=== PATIENT | female | born 1940 | race Caucasian/White ===

== ENCOUNTER 2023-08-19 12:46 | Emergency (ER) | payer MEDICARE, OTHER ==
[2023-08-19 13:12] VITALS: TEMP 98.7
[2023-08-19] MEDS ORDERED: SODIUM CHLORIDE 0.9% 500 ML 500 ML IV STA (13:24)
--- NOTE | 2023-08-19 13:39 | ED ---
General Adult HPI - General Chief complaint: Fall Stated complaint: Dizziness, Dementia Time Seen by Provider: 08/19/23 13:15 Source: patient, EMS, RN notes reviewed, old records reviewed Mode of arrival: EMS - History of Present Illness Initial comments: 83 FEMALE with either fall or syncopal episode. Patient was found on the floor at the assisted living facility where she lives. Patient has no complaints, he does have history of dementia and history is somewhat limited. According to family member the patient was found this morning on the floor. Patient denies head or neck pain. Denies chest or abdominal pain. No focal numbness or weakness. - Related Data Home Medications Medication Instructions Recorded Confirmed Donepezil [Aricept] 5 mg PO HS@199908/19/23 08/19/23 Escitalopram Oxalate [Lexapro] 20 mg PO DAILY@0808/19/23 08/19/23 Ezetimibe [Zetia] 10 mg PO DAILY@0800 08/19/23 08/19/23 Memantine [Namenda] 10 mg PO BID@0800,199908/19/23 08/19/23 lisinopriL [Zestril] 2.5 mg PO DAILY@0800 08/19/23 08/19/23 Previous Rx's Medication Instructions Recorded lisinopriL [Zestril] 5 mg PO DAILY 30 Days #30 tablet 08/19/23 Allergies Allergy/AdvReac Type Severity Reaction Status Date / Time No Known Allergies Allergy Verified 08/19/23 14:27 Review of Systems ROS Statement: Those systems with pertinent positive or pertinent negative responses have been documented in the HPI. ROS Other: All systems not noted in ROS Statement are negative. Past Medical History Past Medical History: Dementia, Diabetes Mellitus, Hypertension Additional Past Medical History / Comment(s): Hard of hearing Past Surgical History: Cholecystectomy Smoking Status: Never smoker Past Alcohol Use History: None Reported Past Drug Use History: None Reported General Exam General appearance: alert, in no apparent distress Head exam: Present: atraumatic, normocephalic Eye exam: Present: normal appearance, PERRL ENT exam: Present: normal exam Neck exam: Present: normal inspection. Absent: tenderness, meningismus Respiratory exam: Present: normal lung sounds bilaterally. Absent: respiratory distress, wheezes Cardiovascular Exam: Present: regular rate, normal rhythm GI/Abdominal exam: Present: soft. Absent: distended, tenderness, guarding Extremities exam: Present: normal inspection, normal capillary refill. Absent: pedal edema Neurological exam: Present: alert, CN II-XII intact. Absent: motor sensory deficit Psychiatric exam: Present: normal affect, normal mood Skin exam: Present: warm, dry, intact. Absent: cyanosis, diaphoretic Course Vital Signs 08/19/23 08/19/23 08/19/23 12:54 13:45 14:38 Temperature 98.7 F Pulse Rate 58 L 60 59 L Respiratory 18 16 18 Rate Blood Pressure 219/86 167/120 213/85 O2 Sat by Pulse 98 97 99 Oximetry Medical Decision Making - Medical Decision Making Was pt. sent in by a medical professional or institution (, PA, MOTOR AND CHASSIS INSPECTOR, urgent care, hospital, or long term...) When possible be specific @ -No Did you speak to anyone other than the patient for history (EMS, parent, family, police, friend...)? What history was obtained from this source @ -No Did you review nursing and triage notes (agree or disagree)? Why? @ -I reviewed and agree with nursing and triage notes Were old charts reviewed (outside hosp., previous admission, EMS record, old EKG, old radiological studies, urgent care reports/EKG's, long term records)? Report findings @ -No old charts were reviewed Differential Diagnosis (chest pain, altered mental status, abdominal pain women, abdominal pain men, vaginal bleeding, weakness, fever, dyspnea, syncope, headache, dizziness, GI bleed, back pain, seizure, CVA, palpatations, mental health, musculoskeletal)? @ -[Differential Syncope: Valvular disease, hypertrophic cardiomyopathy, pulmonary embolism, tamponade, tachycardia, bradycardia, [place], hypovolemia, hemorrhage, dissection, anemia, intracranial hemorrhage, seizure, hypoglycemia, carbon monoxide poisoning, this is not meant to be an all-inclusive list. EKG interpreted by me (3pts min.). @ -[Sinus bradycardia rate of 58, HI interval 131, QRS duration 88, QTC [address] segment elevation. X-rays interpreted by me (1pt min.). @ -Chest x-ray negative for acute Jose Sood findings CT interpreted by me (1pt min.). @ CT brain negative for intracranial hemorrhage or mass effect U/S interpreted by me (1pt. min.). @ -None done What testing was considered but not performed or refused? (CT, X-rays, U/S, labs)? Why? @ -None What meds were considered but not given or refused? Why? @ -None Did you discuss the management of the patient with other professionals (professionals i.e. , PA, MOTOR AND CHASSIS INSPECTOR, lab, RT, psych nurse, social work case manager, long goods drier, teacher, president and chief commercial officer, catalytic case operator)? Give summary @ -No Was smoking cessation discussed for >3mins.? @ -No Was critical care preformed (if so, how long)? @ -No Were there social determinants of health that impacted care today? How? (Homelessness, low income, unemployed, alcoholism, drug addiction, transportation, low edu. Level, literacy, decrease access to med. care, fpc, rehab)? @ -No Was there de-escalation of care discussed even if they declined (Discuss DNR or withdrawal of care, Hospice)? DNR status @ -No What co-morbidities impacted this encounter? (DM, HTN, Smoking, COPD, CAD, Canc er, CVA, ARF, Chemo, Hep., AIDS, mental health diagnosis, sleep apnea, morbid obesity)? @ History of dementia Was patient admitted / discharged? Hospital course, mention meds given and route, prescriptions, significant lab abnormalities, going to OR and other per tinent info. @ -[83-year-old female history of dementia, limited history. Patient found after either falling, falling asleep on the ground or passing out. Patient has no complaints. She is in sinus rhythm. She's had her baseline mental status. She has no pain complaints. Workup including brain CT, chest x-ray, EKG, lab testing is unremarkable. Patient and family very eager for discharge. Undiagnosed new problem with uncertain prognosis? @ -No Drug Therapy requiring intensive monitoring for toxicity (Heparin, Nitro, Insulin, Cardizem)? @ -No Were any procedures done? @ -No Diagnosis/symptom? @ -Syncope, fall Acute, or Chronic, or Acute on Chronic? @ -Acute Uncomplicated (without systemic symptoms) or Complicated (systemic symptoms)? @ -default Side effects of treatment? @ -No Exacerbation, Progression, or Severe Exacerbation? @ -No Poses a threat to life or bodily function? How? (Chest pain, [place], [place], pneumonia, PE, COPD, DKA, ARF, appy, cholecystitis, CVA, Diverticulitis, Homicidal, Suicidal, threat to staff... and all critical care pts) @ -Low risk at this time - Lab Data Result diagrams: 08/19/23 13:34 08/19/23 13:34 Lab Results 08/19/23 08/19/23 08/19/23 Range/Units 13:34 13:34 13:34 WBC 9.2 (3.8-10.6) k/uL RBC 4.87 (3.80-5.40) m/uL Hgb 15.8 (11.4-16.0) gm/dL Hct 47.5 H (34.0-46.0) % MCV 97.4 (80.0-100.0) fL MCH 32.5 (25.0-35.0) pg MCHC 33.3 (31.0-37.0) g/dL RDW 13.8 (11.5-15.5) % Plt Count 197 (150-450) k/uL MPV 7.8 Neutrophils % 73 % Lymphocytes % 20 % Monocytes % 4 % Eosinophils % 1 % Basophils % 0 % Neutrophils # 6.7 (1.3-7.7) k/uL Lymphocytes # 1.8 (1.0-4.8) k/uL Monocytes # 0.4 (0-1.0) k/uL Eosinophils # 0.1 (0-0.7) k/uL Basophils # 0.0 (0-0.2) k/uL PT 10.9 (10.0-12.5) sec INR 1.0 (<1.2) APTT 27.2 (22.0-30.0) sec Sodium (137-145) mmol/L Potassium (3.5-5.1) mmol/L Chloride (98-107) mmol/L Carbon Dioxide (22-30) mmol/L Anion Gap mmol/L BUN (7-17) mg/dL Creatinine (0.52-1.04) mg/dL Est GFR (CKD-EPI)AfAm (>60 ml/min/1.73 sqM) Est GFR (CKD-EPI)NonAf (>60 ml/min/1.73 sqM) Glucose (74-99) mg/dL Calcium (8.4-10.2) mg/dL Magnesium (1.6-2.3) mg/dL Total Bilirubin (0.2-1.3) mg/dL AST (14-36) U/L ALT (4-34) U/L Alkaline Phosphatase (38-126) U/L Troponin I (0.000-0.034) ng/mL Total Protein (6.3-8.2) g/dL Albumin (3.5-5.0) g/dL Urine Color Colorless Urine Appearance Cloudy H (Clear) Urine pH 7.5 (5.0-8.0) Ur Specific [place] 1.009 (1.001-1.035) Urine Protein Negative (Negative) Urine Glucose (UA) Negative (Negative) Urine Ketones Negative (Negative) Urine Blood Trace H (Negative) Urine Nitrite Negative (Negative) Urine Bilirubin Negative (Negative) Urine Urobilinogen <2.0 (<2.0) mg/dL Ur Leukocyte Esterase Moderate H (Negative) Urine RBC 4 (0-5) /hpf Urine WBC 31 H (0-5) /hpf Ur Squamous Epith Cells 2 (0-4) /hpf Urine Bacteria Many H (None) /hpf Urine Mucus Rare H (None) /hpf 08/19/23 08/19/23 Range/Units 13:34 13:34 WBC (3.8-10.6) k/uL RBC (3.80-5.40) m/uL Hgb (11.4-16.0) gm/dL Hct (34.0-46.0) % MCV (80.0-100.0) fL MCH (25.0-35.0) pg MCHC (31.0-37.0) g/dL RDW (11.5-15.5) % Plt Count (150-450) k/uL MPV Neutrophils % % Lymphocytes % % Monocytes % % Eosinophils % % Basophils % % Neutrophils # (1.3-7.7) k/uL Lymphocytes # (1.0-4.8) k/uL Monocytes # (0-1.0) k/uL Eosinophils # (0-0.7) k/uL Basophils # (0-0.2) k/uL PT (10.0-12.5) sec INR (<1.2) APTT (22.0-30.0) sec Sodium 138 (137-145) mmol/L Potassium 4.8 (3.5-5.1) mmol/L Chloride 104 (98-107) mmol/L Carbon Dioxide 23 (22-30) mmol/L Anion Gap 11 mmol/L BUN 14 (7-17) mg/dL Creatinine 0.81 (0.52-1.04) mg/dL Est GFR (CKD-EPI)AfAm 78 (>60 ml/min/1.73 sqM) Est GFR (CKD-EPI)NonAf 68 (>60 ml/min/1.73 sqM) Glucose 85 (74-99) mg/dL Calcium 9.2 (8.4-10.2) mg/dL Magnesium 2.0 (1.6-2.3) mg/dL Total Bilirubin 1.2 (0.2-1.3) mg/dL AST 42 H (14-36) U/L ALT 19 (4-34) U/L Alkaline Phosphatase 53 (38-126) U/L Troponin I 0.018 (0.000-0.034) ng/mL Total Protein 8.6 H (6.3-8.2) g/dL Albumin 4.7 (3.5-5.0) g/dL Urine Color Urine Appearance (Clear) Urine pH (5.0-8.0) Ur Specific [place] (1.001-1.035) Urine Protein (Negative) Urine Glucose (UA) (Negative) Urine Ketones (Negative) Urine Blood (Negative) Urine Nitrite (Negative) Urine Bilirubin (Negative) Urine Urobilinogen (<2.0) mg/dL Ur Leukocyte Esterase (Negative) Urine RBC (0-5) /hpf Urine WBC (0-5) /hpf Ur Squamous Epith Cells (0-4) /hpf Urine Bacteria (None) /hpf Urine Mucus (None) /hpf Disposition Clinical Impression: Fall, Syncope Disposition: HOME SELF-CARE Condition: Fair Instructions (If sedation given, give patient instructions): Syncope (ED), Fall Prevention for Older Adults (ED) Prescriptions: lisinopriL [Zestril] 5 mg PO DAILY 30 Days #30 tablet Is patient prescribed a controlled substance at d/c from ED?: No Referrals: Jr Carlson MD [Primary Care Provider] - 1-2 days Time of Disposition: 16:06
[2023-08-19 14:37] LABS: Basophils % (A) 0 %; Eosinophils # (A) 0.1 k/uL (0-0.7); Eosinophils % (A) 1 %; HCT 47.5 % (34.0-46.0); HGB 15.8 gm/dL (11.4-16.0); Lymphocytes # (A) 1.8 k/uL (1.0-4.8); Lymphocytes % (A) 20 %; MCH 32.5 pg (25.0-35.0); MCHC 33.3 g/dL (31.0-37.0); MCV 97.4 fL (80.0-100.0); Mean Platelet Volume 7.8; Monocytes # (A) 0.4 k/uL (0-1.0); Monocytes % (A) 4 %; Neutrophils # (A) 6.7 k/uL (1.3-7.7); Neutrophils % (A) 73 %; Platelet Count 197 k/uL (150-450); RBC 4.87 m/uL (3.80-5.40); RDW 13.8 % (11.5-15.5); WBC 9.2 k/uL (3.8-10.6)
[2023-08-19 14:49] VITALS: RESP 18
[2023-08-19 15:14] LABS: ALT 19 U/L (4-34); African American GFR (CKD) 78 (>60 ml/min/1.73 sqM); Albumin 4.7 g/dL (3.5-5.0); Anion Gap 11 mmol/L; Blood Urea Nitrogen 14 mg/dL (7-17); Calcium 9.2 mg/dL (8.4-10.2); Carbon Dioxide 23 mmol/L (22-30); Chloride 104 mmol/L (98-107); Glucose 85 mg/dL (74-99); Non-African American GFR(CKD) 68 (>60 ml/min/1.73 sqM); Sodium 138 mmol/L (137-145); Total Bilirubin 1.2 mg/dL (0.2-1.3); Total Protein 8.6 g/dL (6.3-8.2)
[2023-08-19 15:15] LABS: Partial Thromboplastin Time 27.2 sec (22.0-30.0); Prothrombin Time 10.9 sec (10.0-12.5)
[2023-08-19 15:16] LABS: Potassium 4.8 mmol/L (3.5-5.1)
[2023-08-19 15:17] LABS: AST 42 U/L (14-36); Alkaline Phosphatase 53 U/L (38-126)
[2023-08-19 15:28] LABS: Appearance,Urine Cloudy (Clear); Bacteria,Urine Many /hpf; Bilirubin,Urine Negative (Negative); Blood,Urine Trace (Negative); Color,Urine Colorless; Glucose,Urine (UA) Negative (Negative); Ketones,Urine Negative (Negative); Leukocyte Esterase,Urine Moderate (Negative); Mucus,Urine Rare /hpf; Nitrite,Urine Negative (Negative); PH, Urine 7.5 (5.0-8.0); Protein,Urine Negative (Negative); RBC,Urine 4 /hpf (0-5); Specific Gravity,Urine 1.009 (1.001-1.035); Squamous Epithelial Cell,Urine 2 /hpf (0-4); Urobilinogen,Urine <2.0 mg/dL (<2.0); WBC,Urine 31 /hpf (0-5)
--- NOTE | 2023-08-19 15:35 | CT ---
EXAMINATION TYPE: CT brain wo con CT DLP: 1167.4 mGycm, Automated exposure control for dose reduction was used. DATE OF EXAM: 08/19/2023 3:27 PM COMPARISON: 05/28/2012. CLINICAL INDICATION:Female, 83 years old with history of fall, Fall, dizziness, dementia TECHNIQUE: Brain: Axial CT images of the brain were obtained with coronal and sagittal reformats created and rev iewed. Contrast used: None. Oral contrast used: None. FINDINGS: Brain: Extra-axial spaces: No abnormal extra-axial fluid collections. Probable small peripherally calcified meningioma measuring 5 mm in the posterior right parietal region. Ventricular system: Dilatation in proportion to cerebral atrophy. Cerebral parenchyma: Cerebral atrophy. No acute intraparenchymal hemorrhage or mass effect. The bullock -white junction is well differentiated. Scattered hypoattenuating areas are seen within the white mat ter. Cerebellum: Unremarkable. Mass effect: No evidence of midline shift. Intracranial vasculature: Atherosclerotic calcifications of the intracranial vessels. Soft tissues: Normal. Calvarium/osseous structures: No depressed skull fracture. Paranasal sinuses and mastoid air cells: Mild scattered paranasal sinus disease. Visualized orbits: Bilateral aphakia IMPRESSION: 1. No acute intracranial process. 2. Nonspecific white matter changes, likely secondary to chronic small vessel ischemic disease.
--- NOTE | 2023-08-19 15:42 | XR ---
EXAMINATION TYPE: XR chest 2V DATE OF EXAM: 08/19/2023 COMPARISON: None HISTORY: 83-year-old female with syncope TECHNIQUE: AP and lateral views FINDINGS: Heart borderline in size. Interstitial prominence. No consolidation or pleural effusion. IMPRESSION: Borderline cardiomegaly. No definite acute process.
[2023-08-19 16:49] VITALS: BP 200/94; PULSE 67
== END 2023-08-19 16:42 | disposition home or self-care (01) ==
LOC: EC 12:46
DX: R55 Syncope and collapse (principal); I10 Essential (primary) hypertension; E11.9 Type 2 diabetes mellitus without complications; Z79.899 Other long term (current) drug therapy; Z90.49 Acquired absence of other specified parts of digestive tract; W18.30XA Fall on same level, unspecified, initial encounter
CPT/HCPCS: 36415; 70450; 71046; 80053; 81001; 83735; 84484; 85025; 85610; 85730; 93005; 96360; 99285

== ENCOUNTER 2023-09-10 12:40 | Inpatient (IN) | payer MEDICARE, OTHER ==
--- NOTE | 2023-09-10 13:02 | ED ---
General Adult HPI - General Chief complaint: Altered Mental Status Stated complaint: UTI Time Seen by Provider: 09/10/23 12:44 Source: patient, EMS, RN notes reviewed, old records reviewed Mode of arrival: EMS Limitations: altered mental status - History of Present Illness Initial comments: 83-year-old pleasant female presenting with increased confusion and aggression towards staff. Patient is apparently coming from assisted living facility. There had been a altercation or argument with staff and there was concern for increased confusion. There was mention of urinary tract infection however is uncertain if the patient is currently being treated. She herself has no complaints. Denies pain. Denies fever. Denies vomiting. - Related Data Home Medications Medication Instructions Recorded Confirmed Donepezil [Aricept] 5 mg PO HS@199908/19/23 08/19/23 Escitalopram Oxalate [Lexapro] 20 mg PO DAILY@0808/19/23 08/19/23 Ezetimibe [Zetia] 10 mg PO DAILY@0808/19/23 08/19/23 Memantine [Namenda] 10 mg PO BID@08,199908/19/23 08/19/23 lisinopriL [Zestril] 2.5 mg PO DAILY@0800 08/19/23 08/19/23 Previous Rx's Medication Instructions Recorded lisinopriL [Zestril] 5 mg PO DAILY 30 Days #30 tab 08/19/23 Allergies Allergy/AdvReac Type Severity Reaction Status Date / Time No Known Allergies Allergy Verified 08/19/23 14:27 Review of Systems ROS Statement: Those systems with pertinent positive or pertinent negative responses have been documented in the HPI. ROS Other: All systems not noted in ROS Statement are negative. Past Medical History Past Medical History: Dementia, Diabetes Mellitus, Hypertension Additional Past Medical History / Comment(s): Hard of hearing Past Surgical History: Cholecystectomy Smoking Status: Never smoker Past Alcohol Use History: None Reported Past Drug Use History: None Reported General Exam General appearance: alert, in no apparent distress Head exam: Present: atraumatic. Absent: normocephalic Eye exam: Present: normal appearance. Absent: PERRL Neck exam: Present: normal inspection. Absent: tenderness Respiratory exam: Present: normal lung sounds bilaterally. Absent: respiratory distress, wheezes Cardiovascular Exam: Present: normal rhythm, tachycardia GI/Abdominal exam: Present: soft. Absent: distended, tenderness Extremities exam: Present: normal inspection Neurological exam: Present: alert, CN II-XII intact. Absent: oriented X3, motor sensory deficit Psychiatric exam: Present: normal affect, normal mood Skin exam: Present: warm, dry, intact Course Vital Signs 09/10/23 12:46 Temperature 97.6 F Pulse Rate 49 L Respiratory 20 Rate Blood Pressure 160/60 O2 Sat by Pulse 98 Oximetry Medical Decision Making - Medical Decision Making Was pt. sent in by a medical professional or institution (, PA, PADDER CUSHION, urgent care, hospital, or [facility]...) When possible be specific @ -No Did you speak to anyone other than the patient for history (EMS, parent, family, police, friend...)? What history was obtained from this source @ -No Did you review nursing and triage notes (agree or disagree)? Why? @ -I reviewed and agree with nursing and triage notes Were old charts reviewed (outside hosp., previous admission, EMS record, old EKG, old radiological studies, urgent care reports/EKG's, [facility] records)? Report findings @ -No old charts were reviewed Differential Diagnosis (chest pain, altered mental status, abdominal pain women, abdominal pain men, vaginal bleeding, weakness, fever, dyspnea, syncope, headache, dizziness, GI bleed, back pain, seizure, CVA, palpatations, mental health, musculoskeletal)? @ -Differential Altered Mental Status: Hypoglycemia, DKA, hypercapnia, ETOH, overdose, CO poisoning, trauma, myxedema coma, HTN encephalopathy, infection, encephalitis, psychosis, intercranial hemorrhage, hepatic encephalopathy, meningitis, CVA, this is not meant to be an all-inclusive list EKG interpreted by me (3pts min.). @ -As above X-rays interpreted by me (1pt min.). @ -None done CT interpreted by me (1pt min.). @ -None done U/S interpreted by me (1pt. min.). @ -None done What testing was considered but not performed or refused? (CT, X-rays, U/S, labs)? Why? @ -None What meds were considered but not given or refused? Why? @ -None Did you discuss the management of the patient with other professionals (professionals i.e. , VERA, PADDER CUSHION, lab, RT, psych nurse, dialysis social worker, chart calculator, teacher, real estate officer, senior case manager)? Give summary @ -[Case discussed with Dr. Carlson Was smoking cessation discussed for >3mins.? @ -No Was critical care preformed (if so, how long)? @ -No Were there social determinants of health that impacted care today? How? (Homelessness, low income, unemployed, alcoholism, drug addiction, transportation, low edu. Level, literacy, decrease access to med. care, retirement, rehab)? @ -No Was there de-escalation of care discussed even if they declined (Discuss DNR or withdrawal of care, Hospice)? DNR status @ -No What co-morbidities impacted this encounter? (DM, HTN, Smoking, COPD, CAD, Cancer, CVA, ARF, Chemo, Hep., AIDS, mental health diagnosis, sleep apnea, morbid obesity)? @ -None Was patient admitted / discharged? Hospital course, mention meds given and route, prescriptions, significant lab abnormalities, going to OR and other pertinent info. @ -[83-year-old female history of dementia with worsening confusion and agitation. Patient calm and cooperative at the time my evaluation. She has recently been treated for urinary tract infection and does have persistent bacteriuria. Urine culture obtained, given dose of antibiotics in the emergency department. She also has a slight worsening of her creatinine with a creatinine at 1.15. She will be admitted for hydration, antibiotics, and the possible need for placement. Undiagnosed new problem with uncertain prognosis? @ -No Drug Therapy requiring intensive monitoring for toxicity (Heparin, Nitro, Insulin, Cardizem)? @ -No Were any procedures done? @ -No Diagnosis/symptom? @Altered mental status Acute, or Chronic, or Acute on Chronic? @ -Acute on chronic Uncomplicated (without systemic symptoms) or Complicated (systemic symptoms)? @ -Default Side effects of treatment? @ -No Exacerbation, Progression, or Severe Exacerbation? @ -No Poses a threat to life or bodily function? How? (Chest pain, [place], [place], pneumonia, PE, COPD, DKA, ARF, appy, cholecystitis, CVA, Diverticulitis, Homicidal, Suicidal, threat to staff... and all critical care pts) @ -Yes, worsening mental status - Lab Data Result diagrams: 09/10/23 13:25 09/10/23 13:25 Lab Results 09/10/23 09/10/23 09/10/23 Range/Units 13:25 13:25 13:25 WBC 4.8 (3.8-10.6) k/uL RBC 4.32 (3.80-5.40) m/uL Hgb 14.4 (11.4-16.0) gm/dL Hct 41.6 (34.0-46.0) % MCV 96.2 (80.0-100.0) fL MCH 33.2 (25.0-35.0) pg MCHC 34.5 (31.0-37.0) g/dL RDW 14.0 (11.5-15.5) % Plt Count 139 L (150-450) k/uL MPV 8.1 Neutrophils % 56 % Lymphocytes % 31 % Monocytes % 7 % Eosinophils % 2 % Basophils % 0 % Neutrophils # 2.7 (1.3-7.7) k/uL Lymphocytes # 1.5 (1.0-4.8) k/uL Monocytes # 0.4 (0-1.0) k/uL Eosinophils # 0.1 (0-0.7) k/uL Basophils # 0.0 (0-0.2) k/uL Sodium 137 (137-145) mmol/L Potassium 4.6 (3.5-5.1) mmol/L Chloride 107 (98-107) mmol/L Carbon Dioxide 22 (22-30) mmol/L Anion Gap 8 mmol/L BUN 21 H (7-17) mg/dL Creatinine 1.15 H (0.52-1.04) mg/dL Est GFR (CKD-EPI)AfAm 51 (>60 ml/min/1.73 sqM) Est GFR (CKD-EPI)NonAf 44 (>60 ml/min/1.73 sqM) Glucose 85 (74-99) mg/dL Calcium 9.3 (8.4-10.2) mg/dL Total Bilirubin 0.4 (0.2-1.3) mg/dL AST 25 (14-36) U/L ALT 16 (4-34) U/L Alkaline Phosphatase 50 (38-126) U/L Total Protein 6.7 (6.3-8.2) g/dL Albumin 3.8 (3.5-5.0) g/dL Urine Color Yellow Urine Appearance Cloudy H (Clear) Urine pH 6.0 (5.0-8.0) Ur Specific [place] 1.017 (1.001-1.035) Urine Protein Trace H (Negative) Urine Glucose (UA) Negative (Negative) Urine Ketones Negative (Negative) Urine Blood Negative (Negative) Urine Nitrite Negative (Negative) Urine Bilirubin Negative (Negative) Urine Urobilinogen 3.0 (<2.0) mg/dL Ur Leukocyte Esterase Large H (Negative) Urine RBC 20 H (0-5) /hpf Urine WBC 61 H (0-5) /hpf Ur Squamous Epith Cells 45 H (0-4) /hpf Urine Bacteria Moderate H (None) /hpf Hyaline Casts 3 H (0-2) /lpf Urine Mucus Many H (None) /hpf Disposition Clinical Impression: Altered mental status, Dementia, UTI (urinary tract infection), Dehydration Disposition: ADMITTED IP TO THIS [facility] Condition: Stable Is patient prescribed a controlled substance at d/c from ED?: No Referrals: Jr Carlson MD [Primary Care Provider] - 1-2 days Time of Disposition: 14:19
[2023-09-10 13:55] LABS: Basophils % (A) 0 %; Eosinophils # (A) 0.1 k/uL (0-0.7); Eosinophils % (A) 2 %; HCT 41.6 % (34.0-46.0); HGB 14.4 gm/dL (11.4-16.0); Lymphocytes # (A) 1.5 k/uL (1.0-4.8); Lymphocytes % (A) 31 %; MCH 33.2 pg (25.0-35.0); MCHC 34.5 g/dL (31.0-37.0); MCV 96.2 fL (80.0-100.0); Mean Platelet Volume 8.1; Monocytes # (A) 0.4 k/uL (0-1.0); Monocytes % (A) 7 %; Neutrophils # (A) 2.7 k/uL (1.3-7.7); Neutrophils % (A) 56 %; Platelet Count 139 k/uL (150-450); RBC 4.32 m/uL (3.80-5.40); WBC 4.8 k/uL (3.8-10.6)
[2023-09-10 14:01] LABS: Appearance,Urine Cloudy (Clear); Bacteria,Urine Moderate /hpf; Bilirubin,Urine Negative (Negative); Blood,Urine Negative (Negative); Color,Urine Yellow; Glucose,Urine (UA) Negative (Negative); Hyaline Casts,Urine 3 /lpf (0-2); Ketones,Urine Negative (Negative); Leukocyte Esterase,Urine Large (Negative); Mucus,Urine Many /hpf; Nitrite,Urine Negative (Negative); Protein,Urine Trace (Negative); RBC,Urine 20 /hpf (0-5); Specific Gravity,Urine 1.017 (1.001-1.035); Squamous Epithelial Cell,Urine 45 /hpf (0-4); WBC,Urine 61 /hpf (0-5)
[2023-09-10 14:08] LABS: ALT 16 U/L (4-34); AST 25 U/L (14-36); African American GFR (CKD) 51 (>60 ml/min/1.73 sqM); Albumin 3.8 g/dL (3.5-5.0); Alkaline Phosphatase 50 U/L (38-126); Anion Gap 8 mmol/L; Blood Urea Nitrogen 21 mg/dL (7-17); Calcium 9.3 mg/dL (8.4-10.2); Carbon Dioxide 22 mmol/L (22-30); Chloride 107 mmol/L (98-107); Glucose 85 mg/dL (74-99); Non-African American GFR(CKD) 44 (>60 ml/min/1.73 sqM); Potassium 4.6 mmol/L (3.5-5.1); Sodium 137 mmol/L (137-145); Total Bilirubin 0.4 mg/dL (0.2-1.3); Total Protein 6.7 g/dL (6.3-8.2)
[2023-09-10] MEDS ORDERED: ACETAMINOPHEN TAB 325 MG TAB PO PRN (14:13)
[2023-09-10] MEDS ORDERED: NALOXONE 0.4 MG/ML 1 ML VIAL IV PRN (14:13)
[2023-09-10] MEDS: cefTRIAXone IN SWFI 1,000 MG/10 ML SYRINGE IVP STA (14:43)
[2023-09-10] MEDS: SODIUM CHLORIDE 0.9% 1,000 ML IV SCH (14:47)
[2023-09-10] MEDS: amLODIPine 5 MG TAB PO SCH (20:17)
[2023-09-10] MEDS: ALPRAZolam 0.5 MG TAB PO PRN (20:17)
[2023-09-10] MEDS: DONEPEZIL 5 MG TAB PO SCH (20:17)
[2023-09-10] MEDS: MEMANTINE 5 MG TAB PO SCH (20:17)
[2023-09-10 20:38] LABS: Glucose,Whole Blood 80 mg/dL (70-110)
[2023-09-11 07:12] LABS: Glucose,Whole Blood 71 mg/dL (70-110)
--- NOTE | 2023-09-11 08:25 | P.HPIM ---
History of Present Illness H&P Date: 09/11/23 Chief Complaint: Cognitive deficit This is a history of this, a 3-year-old white female who is having worsening cognitive element. The patient has been working living in an extended care facility but has been much more disoriented. Memory is quite poor and she is admitted secondary to get her placed into a type of memory care unit. The patient is pleasantly disoriented no violent behavior she was seen in my office last week for UTI. She is also mated for mild dehydration. No fever or chills. No send nausea, vomiting or diarrhea. Review of Systems Constitutional: Denies chills, Denies fever Eyes: denies blurred vision, denies pain Ears, nose, mouth and throat: Denies headache, Denies sore throat Cardiovascular: Denies chest pain, Denies shortness of breath Past Medical History Past Medical History: Dementia, Diabetes Mellitus, Hyperlipidemia, Hypertension Additional Past Medical History / Comment(s): Hard of hearing History of Any Multi-Drug Resistant Organisms: None Reported Past Surgical History: Cholecystectomy Past Anesthesia/Blood Transfusion Reactions: No Reported Reaction Smoking Status: Never smoker Medications and Allergies Home Medications Medication Instructions Recorded Confirmed Type Donepezil [Aricept] 5 mg PO HS@199908/19/23 09/10/23 History Escitalopram Oxalate [Lexapro] 20 mg PO DAILY@0808/19/23 09/10/23 History Ezetimibe [Zetia] 10 mg PO DAILY@0800 08/19/23 09/10/23 History Memantine HCl [Namenda] 5 mg PO BID@799,199909/10/23 09/10/23 History RX: lisinopriL [Zestril] 5 mg PO DAILY@0800 09/10/23 09/10/23 History Sulfamethox-Tmp 800-160Mg [Bactrim 1 tab PO Q12HR@799,199909/10/23 09/10/23 History DS 800-160 mg] Allergies Allergy/AdvReac Type Severity Reaction Status Date / Time No Known Allergies Allergy Verified 09/10/23 15:26 Physical Exam Vitals: Vital Signs Temp Pulse Pulse Resp BP BP BP 09/11/23 02:00 98 F 53 L 16 162/64 09/10/23 19:52 184/84 02/06/24 19:12 97.5 F L 50 L 16 191/71 09/10/23 17:46 97.6 F 56 L 18 163/68 09/10/23 16:22 97.6 F 54 L 20 170/70 09/10/23 12:46 97.6 F 49 L 20 160/60 Pulse Ox 09/11/23 02:00 97 09/10/23 19:52 09/10/23 19:12 98 09/10/23 17:46 96 09/10/23 16:22 99 09/10/23 12:46 98 Intake and Output 09/10/23 09/11/23 09/11/23 22:59 06:59 14:59 Other: Voiding Method Toilet # Voids 3 Weight 68.039 kg - Constitutional General appearance: no acute distress - EENT Eyes: EOMI - Neck Neck: no lymphadenopathy - Respiratory Respiratory: bilateral: diminished - Cardiovascular Rhythm: regular Heart sounds: normal: S1, S2 Abnormal Heart Sounds: no S3 Gallop - Gastrointestinal General gastrointestinal: soft, no tenderness - Integumentary Integumentary: no cellulitis - Psychiatric Psychiatric: no A&O x's 3, appropriate affect, no intact judgment & insight Results CBC & Chem 7: 09/10/23 13:25 09/10/23 13:25 Labs: Abnormal Lab Results - Last 24 Hours (Table) 09/10/23 09/10/23 09/10/23 Range/Units 13:25 13:25 13:25 Plt Count 139 L (150-450) k/uL BUN 21 H (7-17) mg/dL Creatinine 1.15 H (0.52-1.04) mg/dL Urine Appearance Cloudy H (Clear) Urine Protein Trace H (Negative) Ur Leukocyte Esterase Large H (Negative) Urine RBC 20 H (0-5) /hpf Urine WBC 61 H (0-5) /hpf Ur Squamous Epith Cells 45 H (0-4) /hpf Urine Bacteria Moderate H (None) /hpf Hyaline Casts 3 H (0-2) /lpf Urine Mucus Many H (None) /hpf Thrombosis Risk Factor Assmnt - Choose All That Apply Any of the Below Risk Factors Present?: No Other Risk Factors: No Other congenital or acquired thrombophilia - If yes, enter type in comment: No Thrombosis Risk Factor Assessment Level: Very Low Risk Assessment and Plan (1) Altered mental status Current Visit: Yes Status: Acute Code(s): R41.82 - ALTERED MENTAL STATUS, UNSPECIFIED SNOMED Code(s): 271351808 (2) Dehydration Current Visit: Yes Status: Acute Code(s): E86.0 - DEHYDRATION SNOMED Code(s): 68058476 (3) Dementia Current Visit: Yes Status: Acute Code(s): F03.90 - UNSP DEMENTIA, UNSP SEVERITY, WITHOUT BEH/PSYCH/MOOD/ANX SNOMED Code(s): 95860323 (4) UTI (urinary tract infection) Current Visit: Yes Status: Acute Code(s): N39.0 - URINARY TRACT INFECTION, SITE NOT SPECIFIED SNOMED Code(s): 42235879 Plan: Discharge planning for appropriate placement given her cognitive deficits and dementia. Treat for UTI and IV fluid for hydration. Check CBC and CMP in AM. Prognosis is guarded
[2023-09-11] MEDS: lisinopriL 5 MG TAB PO SCH (08:42)
[2023-09-11] MEDS: ESCITALOPRAM 20 MG TAB PO SCH (08:42)
[2023-09-11] MEDS: EZETIMIBE 10 MG TAB PO SCH (08:43)
[2023-09-11 11:43] LABS: Glucose,Whole Blood 154 mg/dL (70-110)
[2023-09-11 17:01] LABS: Glucose,Whole Blood 118 mg/dL (70-110)
[2023-09-11 20:12] LABS: Glucose,Whole Blood 128 mg/dL (70-110)
[2023-09-12 07:24] LABS: Glucose,Whole Blood 101 mg/dL (70-110)
[2023-09-12 10:41] LABS: ALT 19 U/L (4-34); AST 33 U/L (14-36); African American GFR (CKD) 65 (>60 ml/min/1.73 sqM); Albumin 3.9 g/dL (3.5-5.0); Albumin/Globulin Ratio 1.3; Alkaline Phosphatase 62 U/L (38-126); Anion Gap 6 mmol/L; Blood Urea Nitrogen 13 mg/dL (7-17); Calcium 9.4 mg/dL (8.4-10.2); Carbon Dioxide 25 mmol/L (22-30); Chloride 108 mmol/L (98-107); Globulin 3.1 g/dL; Glucose 133 mg/dL (74-99); Non-African American GFR(CKD) 56 (>60 ml/min/1.73 sqM); Potassium 4.6 mmol/L (3.5-5.1); Sodium 139 mmol/L (137-145); Total Bilirubin 0.5 mg/dL (0.2-1.3)
[2023-09-12 11:54] LABS: Glucose,Whole Blood 137 mg/dL (70-110)
[2023-09-12] MEDS ORDERED: QUEtiapine 25 MG TAB PO PRN (13:33)
[2023-09-12] MEDS ORDERED: MELATONIN 3 MG TABLET PO PRN (13:34)
[2023-09-12] MEDS ORDERED: OLANZapine 10 MG VIAL IM PRN (13:35)
--- NOTE | 2023-09-12 13:47 | P.CN ---
Psychiatric Consult - . Consult date: 09/12/23 Consult:: 09/12/23 13:03 IDENTIFYING DATA: This patient is a 83-year-old female, currently living in a assisted living facility REASON FOR REFERRAL: Psychiatry was consulted for dementia and aggression. HISTORY OF PRESENT ILLNESS: The patient presented to the hospital on 09/10 for increased confusion and aggression at her assisted living. She apparently was more aggressive towards the staff. There is apparently mention of a UTI that was meant to be treated. Altered mental status and dehydration were the reasons for medical admission. Psychiatry spoke with nurse and patient's medical team, they state that patient is impulsive and at times agitated/irritable. Patient was seen with a one-to-one sitter at the bedside. She acknowledge tag writer however was not able to answer many questions. She was difficult to redirect during conversation. Fairly poor attention span. She did appear to be somewhat impulsive during the interview, very poor/limited chronically insight and judgment. She did state that she was willing to take medications. She was not able to properly answer any orientation questions and simply rambled and was illogical. Davon patient was not able to follow commands. She states that she did not want to speak with tag writer, she was a very poor historian. PAST PSYCHIATRIC HISTORY: Patient has a a history of dementia. Patient is currently on Lexapro 20 mg daily and Aricept for memory. Unable to obtain further psychiatric history. Past Medical History: Dementia, Diabetes Mellitus, Hypertension Additional Past Medical History / Comment(s): Hard of hearing Past Surgical History: Cholecystectomy Smoking Status: Never smoker Past Alcohol Use History: None Reported Past Drug Use History: None Reported ALLERGIES: as per EMR. CHEMICAL DEPENDENCY HISTORY: Unable to obtain FAMILY PSYCHIATRIC/SUBSTANCE USE HISTORY: Unable to obtain SOCIAL HISTORY: Patient is currently living in a assisted living facility. Unable to obtain further information MENTAL STATUS EXAM: General Appearance: Patient appears to be well dressed, short hair, stated age is alert, irritable and impulsive. Patient appears to have fair hygiene and grooming wearing hospital gown with fair eye contact. Behavior: Patient is impulsive, difficult to redirect. Speech: Patient's speech is rambling, illogical Mood/Affect: unAble to obtain Suicidality/Homicidality: Unable to obtain Perceptions: Unable to obtain Though content/process: Rambles, illogical. Difficult to redirect Memory and concentration: AOX0, poor attention span. Unable to follow directions. Cannot spell "WORLD" backwards Judgment and insight: Chronically poor/limited IMPRESSIONS: Major neurocognitive disorder possible delirium, likely secondary to UTI/infection PLAN: -At this time patient DOES NOT meet criteria for inpatient psychiatric admission. -Patient DOES NOT have decision making capacity at this time and is unable to reason through and communicate/appreciate the risks, benefits and alternatives to treatment. -Delirium precautions recommended with patient including - avoiding use of narcotics and METHODS TIME ANALYST sedatives, limit anticholinergic medications when possible, frequent re-orientation, minimize use of restraints, open window shades during the day and close them at night -Would recommend the following medication changes/additions: Melatonin nightly as needed for sleep, Seroquel scheduled 25 mg nightly for mood stabilization/psychosis/sleep, Seroquel milligrams twice daily PRN for agitation. Can continue Aricept and Lexapro as prescribed. Discontinue Xanax as patient should not be on benzodiazepines due to her dementia and delirium. -suggested to primary YARDAGE CONTROL CLERK to commence abx treatment for suspected UTI? to help clear delirium if this is the culprit. -Communicated plan to patient's nurse -Psychiatry will sign off at this time -Please contact with any questions. 09/12/23 13:40 09/12/23 13:47
[2023-09-12] MEDS: QUEtiapine 25 MG TAB PO STA (14:37)
[2023-09-12] MEDS: cefTRIAXone 1,000 MG VIAL (IM USE) IM STA (15:33)
[2023-09-12 16:45] LABS: HCT 46.3 % (37.2-46.3); HGB 15.1 g/dL (12.0-15.0); MCH 31.4 pg (27.0-32.0); MCHC 32.6 g/dL (32.0-37.0); MCV 96.3 FL (80.0-97.0); Mean Platelet Volume 11.1 FL (9.5-12.2); NRBC Per 100 WBC 0 X 10*3/uL (0.00-0.01); Platelet Count 171 X 10*3/uL (140-440); RBC 4.81 X 10*6/uL (4.10-5.20); RDW 14.5 % (11.5-14.5); WBC 5.79 X 10*3/uL (4.50-10.00)
[2023-09-12 17:10] LABS: Glucose,Whole Blood 129 mg/dL (70-110)
--- NOTE | 2023-09-12 18:57 | P.PN ---
Subjective Progress Note Date: 09/12/[address] Carlson This is an 83-year-old female who [facility] Dr[facility] with a past medical history of dementia, diabetes, hyperlipidemia, hypertension, anxiety and was brought to the hospital with increased altered mental status with aggression and confusion along with dehydration and concerns for urinary tract infection. Patient did receive IV hydration initially although patient is refusing IV line at this time and has been taking medications by mouth. Patient became aggressive and agitated today attempting to pinch and strike at staff and a psych consult was requested. Patient will be started on Seroquel and adjustments to other medications as accordingly. Patient will also be given a dose of IM ceftriaxone. Urine culture did result as normal kary. Review of systems: Unable to obtain as patient is somewhat agitated at this time All medications have been reviewed PHYSICAL EXAMINATION: GENERAL: The patient is alert and oriented x2, agitated, anxious well developed, well nourished. HEENT: Pupils are round and equally reacting to light. EOMI. no scleral icterus. No conjunctival pallor. Normocephalic, atraumatic. No pharyngeal erythema. No thyromegaly. CARDIOVASCULAR: S1 and S2 muffled PULMONARY: diminished breath sounds bilaterally with no wheezing or rhonchi noted. ABDOMEN: soft. Nontender on exam. non-distended, normoactive bowel sounds. No palpable organomegaly. MUSCULOSKELETAL: No joint swelling or deformity. EXTREMITIES: No cyanosis, clubbing, or pedal edema. NEUROLOGICAL: Gross neurological examination did not reveal any focal deficits. SKIN: No rashes. Assessment: Altered mental status, multifactorial likely secondary to acute urinary tract infection, present on admission, as well as dehydration History of dementia History of diabetes mellitus Hyperlipidemia Hypertension History of anxiety GI prophylaxis DVT prophylaxis Full code Plan: Recommend to continue with current medications will give a dose of ceftriaxone IM as patient is refusing IV. There was concern of altered mentation being from acute urinary tract infection on admission and urine cultures did finalize as normal kary although this was a drastic change in mentation per son and unable to entirely exclude a urinary tract infection. Kidney functions appear improved and patient initially did receive some IV hydration. Again patient has no IV and is refusing Patient became increasingly agitated and somewhat aggressive towards staff demanding to leave and go home although patient is unable to do so given her mentation and cognitive decline. Patient will be going to [facility] with 25/02 care. Patient was evaluated by psychiatry and being started on Seroquel and will follow in the outpatient setting Plan is for return to [facility] in the next possible 24 to 48 hours. Case management following making arrangements on discharge planning Recommend outpatient follow-up with primary care provider this week. The impression and plan of care has been dictated by Carolyn Gimenez, nurse practitioner as directed. Dr. Ludwin MD I have performed a history and examination and MDM of this patient, discussed the same with the dictator, and agree with the dictator's assessment and plan as written ,documented as a scribe. Based on total visit time, I have performed more than 50% of the visit. Any additional findings or plans will be noted. Objective - Vital Signs Vital signs: Vital Signs Temp 98.5 F 09/12/23 07:16 Pulse 53 L 09/12/23 07:16 Resp 20 09/12/23 07:16 BP 198/67 09/12/23 07:16 Pulse Ox 98 09/12/23 07:16 FiO2 Intake & Output 09/11/23 09/12/23 09/12/23 18:59 06:59 18:59 Intake Total 500 500 Balance 500 500 Intake: Intake, IV Titration 500 Amount Sodium Chloride 0.9% 1, 500 000 ml @ 75 mls/hr IV . [id number] [facility] Rx#:[id number] Oral 500 Other: Voiding Method Toilet Toilet # Voids 2 - Labs CBC & Chem 7: 09/12/23 10:04 09/12/23 10:04 Labs: Abnormal Lab Results - Last 24 Hours (Table) 09/11/23 09/11/23 09/12/23 Range/Units 17:00 20:10 10:04 Chloride 108 H (98-107) mmol/L Glucose 133 H (74-99) mg/dL POC Glucose (mg/dL) 118 H 128 H (70-110) mg/dL 09/12/23 Range/Units 11:52 Chloride (98-107) mmol/L Glucose (74-99) mg/dL POC Glucose (mg/dL) 137 H (70-110) mg/dL Microbiology - Last 24 Hours (Table) 09/10/23 14:28 Urine Culture - Final Urine,Clean Catch
[2023-09-12] MEDS: QUEtiapine 25 MG TAB PO SCH (23:13)
--- NOTE | 2023-09-13 10:41 | P.DS ---
Providers Date of admission: 09/12/23 07:45 Expected date of discharge: 09/13/23 Attending physician: Jr Carlson Consults: 09/12/23 09:35 Consult Physician Stat Consulting Provider: Camron Ahuja Reason/Comments: dementia, aggressive behavior, needs med adjustment Do you want consulting provider notified?: Yes Primary care physician: Jr Carlosn Hospital Course: Final diagnosis Altered mental status, multifactorial likely secondary to acute urinary tract infection, present on admission, as well as dehydration History of dementia History of diabetes mellitus Hyperlipidemia Hypertension History of anxiety GI prophylaxis DVT prophylaxis Full code Discharge disposition Patient is being discharged in a stable condition with guarded prognosis to [facility] where she resides with [address] [place] [address]. Patient will follow-up with Dr. Carlson in the outpatient setting upon discharge. Patient is to continue with medications as prescribed and outpatient follow-up with primary care provider in 1 week. Total time taken is greater than 35 minutes. Hospital course This is a 83-year-old female who was recently admitted with altered mentation and increased agitation with concerns of urinary tract infection. Patient had been on Bactrim and urine cultures obtained with normal kary although was given a dose of ceftriaxone. Patient denies any symptoms of pain, burning, or frequency with urination. Patient became slightly agitated wanting to go home yesterday and evaluated by psychiatry recommending frequent reorientation and Seroquel as needed during the day along with Seroquel at night. Patient will be returning to [facility] with Critical access hospital care. Recommend follow-up with Dr. Carlson this week. Currently no reports of chest pain, shortness of breath, or palpi tations. Patient is afebrile. No reports of nausea or vomiting and patient is tolerating diet. Patient will be going to [facility] today. Guarded prognosis Physical exam: Gen: This is a 83-year-old female who is awake, alert and oriented x 12, well- developed, well-nourished HEENT: Head is atraumatic, normocephalic. Pupils equal, round. Sclerae is anicteric. NECK: Supple. No JVD. No lymphadenopathy. No thyromegaly. LUNGS: Clear to auscultation. No wheezes or rhonchi. No intercostal retractions. HEART: Regular rate and rhythm. No murmur. ABDOMEN: Soft. Bowel sounds are present. No masses. No tenderness. EXTREMITIES: No pedal edema. No calf tenderness. NEUROLOGICAL: Patient is awake, alert and oriented x 1-2. Cranial nerves 2 through 12 are grossly intact. Steady gait Please refer to medication reconciliation sheet for a list of medications. The impression and plan of care has been dictated by Carolyn Gimenez, Nurse Practitioner as directed. Dr. Ludwin MD I have performed a history and examination and MDM of this patient, discussed the same with the dictator, and agree with the dictator's assessment and plan as written ,documented as a scribe. Based on total visit time, I have performed more than 50% of the visit. Patient Condition at Discharge: Stable Plan - Discharge Summary Discharge Rx Participant: No New Discharge Prescriptions: New Melatonin 3 mg PO HS PRN #30 tab PRN Reason: Insomnia amLODIPine [Norvasc] 5 mg PO HS #30 tab Acetaminophen Tab [Tylenol] 650 mg PO Q6HR PRN tab PRN Reason: Mild Pain Or Fever > 100.5 Thiamine [Vitamin B-1] 100 mg PO DAILY@1200 #30 tab Folic Acid 1 mg PO DAILY@1200 #30 tab Multivitamins, Thera [Multivitamin (formulary)] 1 each PO DAILY@1200 #30 tab QUEtiapine [SEROquel] 25 mg PO HS 30 Days #30 tab QUEtiapine [SEROquel] 25 mg PO BID PRN #30 tab PRN Reason: Agitation Continue Ezetimibe [Zetia] 10 mg PO DAILY@0800 Escitalopram Oxalate [Lexapro] 20 mg PO DAILY@0800 Donepezil [Aricept] 5 mg PO HS@1999 lisinopriL [Zestril] 5 mg PO DAILY@0800 Memantine HCl [Namenda] 5 mg PO BID@ Discontinued Sulfamethox-Tmp 800-160Mg [Bactrim DS 800-160 mg] 1 tab PO Q12HR@ Discharge Medication List Donepezil [Aricept] 5 mg PO HS@199908/19/23 [History] Escitalopram Oxalate [Lexapro] 20 mg PO DAILY@0800 08/19/23 [History] Ezetimibe [Zetia] 10 mg PO DAILY@0800 08/19/23 [History] Memantine HCl [Namenda] 5 mg PO BID@ 09/10/23 [History] lisinopriL [Zestril] 5 mg PO DAILY@0800 09/10/23 [History] Acetaminophen Tab [Tylenol] 650 mg PO Q6HR PRN tab 09/13/23 [Rx] Folic Acid 1 mg PO DAILY@1200 #30 tab 09/13/23 [Rx] Melatonin 3 mg PO HS PRN #30 tab 09/13/23 [Rx] Multivitamins, Thera [Multivitamin (formulary)] 1 each PO DAILY@1200 #30 tab 09/13/23 [Rx] QUEtiapine [SEROquel] 25 mg PO BID PRN #30 tab 09/13/23 [Rx] QUEtiapine [SEROquel] 25 mg PO HS 30 Days #30 tab 09/13/23 [Rx] Thiamine [Vitamin B-1] 100 mg PO DAILY@1200 #30 tab 09/13/23 [Rx] amLODIPine [Norvasc] 5 mg PO HS #30 tab 09/13/23 [Rx] Follow up Appointment(s)/Referral(s): Jr Carlson MD [Primary Care Provider] - 1-2 days Activity/Diet/Wound Care/Special Instructions: has belongings in a locker in soiled utility room - coto in front of chart Patient is going to [facility] Activity as tolerated Continue medications as prescribed Follow-up with primary care provider on discharge Continue with Seroquel at night and as needed throughout the day for agitation Discharge Disposition: TRANSFER TO SNF/ECF
[2023-09-13] MEDS: MULTIVITAMINS, THERA 1 EACH TAB PO SCH (10:59)
[2023-09-13] MEDS: THIAMINE 100 MG TAB PO SCH (10:59)
[2023-09-13] MEDS: FOLIC ACID 1 MG TAB PO SCH (10:59)
[2023-09-13 11:05] VITALS: BP 181/77; PULSE 54; RESP 17; TEMP 97.3
--- NOTE | 2023-09-17 16:02 | CDI ---
Documentation Clarification Form Date: 09/17/2023 03:43:07 PM From: Nessa Quinonez RN, CCDS Email: [email or web address] Admit Date: 09/12/2023 07:45:00 AM Patient Name: Evelyn Saldaña Visit Number: [id number] Discharge Date: 09/13/2023 11:55:00 AM ATTENTION: The Clinical Documentation Specialists (CDI) and [facility] Coding Staff appreciate your assistance in clarifying documentation. Please respond to the clarification below the line at the bottom and electronically sign. The CDI & [facility] Coding staff will review the response and follow-up if needed. Please note: Queries are made part of the Legal Health Record. If you have any questions, please contact the author of this message via ITS. Dr. Mascorro The patient had the documented symptom of Altered Mental Status in the H&P and subsequent progress notes. Additional clarification regarding the etiology/cause of this symptom is requested. History/Risk Factors: Dementia, DM, HLD. Presented from facility with altered mental status and increased confusion. Admitted with concerns of UTI. Clinical Indicators: ED: "presenting with increased confusion and aggression towards staff." 09/12 IM: "brought to the hospital with increased altered mental status with aggression and confusion along with dehydration and concerns for urinary tract infection. There was concern of altered mentation being from acute urinary tract infection on admission and urine cultures did finalize as normal kary. Although this was a drastic change in mentation per son and unable to entirely exclude a urinary tract infection. 09/12 Psyche consult: "suggested to primary WEATHERIZATION DIRECTOR to commence antibiotic treatment for suspected UTI to help clear delirium if this is the culprit." Discharge summary: "Altered mental status, multifactorial likely secondary to acute urinary tract infection, present on admission." 09/10 UA + Treatment: IV Rocephin 1000mg IVP x1 on 09/10; IV Rocephin 1000mg IM x1 on 09/12; Aricept 5mg po @HS 09/10-09/11; Seroquel 25mg po x1 on 09/12; 0.9 NS @75mL/hr 09/10-09/12 Please clarify the etiology of the symptom of Altered Mental Status: [ ] Acute Metabolic Encephalopathy due to UTI [ ] Delirium (specify cause): [ ] Dementia (if know, specify Type and if with/without Behavioral Disturbance) [ ] Other condition (please specify) [ ] Unable to determine Unable to determine MTDD
--- NOTE | 2023-09-24 11:03 | CDI ---
Documentation Clarification Form Date: 09/17/2023 03:43:00 PM From: Nessa Quinonez RN, CCDS Email: [email or web address] Admit Date: 09/12/2023 07:45:00 AM Patient Name: Evelyn Saldaña Visit Number: [id number] Discharge Date: 09/13/2023 11:55:00 AM ATTENTION: The Clinical Documentation Specialists (CDI) and [facility] Coding Staff appreciate your assistance in clarifying documentation. Please respond to the clarification below the line at the bottom and electronically sign. The CDI & [facility] Coding staff will review the response and follow-up if needed. Please note: Queries are made part of the Legal Health Record. If you have any questions, please contact the author of this message via ITS. Dr. Josh Mascorro The patient had the documented symptom of Altered Mental Status in the H&P and subsequent progress notes. Additional clarification regarding the etiology/cause of this symptom is requested. History/Risk Factors: Dementia, DM, HLD. Presented from facility with altered mental status and increased confusion. Admitted with concerns of UTI. Clinical Indicators: ED: "presenting with increased confusion and aggression towards staff." 09/12 IM: "brought to the hospital with increased altered mental status with aggression and confusion along with dehydration and concerns for urinary tract infection. There was concern of altered mentation being from acute urinary tract infection on admission and urine cultures did finalize as normal kary. Although this was a drastic change in mentation per son and unable to entirely exclude a urinary tract infection. 09/12 Psyche consult: "suggested to primary LIVESTOCK YARD SUPERVISOR to commence antibiotic treatment for suspected UTI to help clear delirium if this is the culprit." Discharge summary: "Altered mental status, multifactorial likely secondary to acute urinary tract infection, present on admission." 09/10 UA + Treatment: IV Rocephin 1000mg IVP x1 on 09/10; IV Rocephin 1000mg IM x1 on 09/12; Aricept 5mg po @HS 09/10-09/11; Seroquel 25mg po x1 on 09/12; 0.9 NS @75mL/hr 09/10-09/12 Please clarify the etiology of the symptom of Altered Mental Status: [ x ] Acute Metabolic Encephalopathy due to UTI [ ] Delirium (specify cause): [ ] Dementia (if know, specify Type and if with/without Behavioral Disturbance) [ ] Other condition (please specify) [ ] Unable to determine MTDD
== END 2023-09-13 11:55 | disposition home or self-care (01) | DRG 689 ==
LOC: EC 12:40 → 5NMEDONC 14:17 → OBSVTOIN 09-12 07:45
PROVIDERS: ADMIT Family Medicine; ATTEND Family Medicine
DX: N39.0 Urinary tract infection, site not specified (principal); G93.41 Metabolic encephalopathy; F03.911 Unspecified dementia, unspecified severity, with agitation; E86.0 Dehydration; E11.9 Type 2 diabetes mellitus without complications; Z28.21 Immunization not carried out because of patient refusal; E78.5 Hyperlipidemia, unspecified; I10 Essential (primary) hypertension; H91.90 Unspecified hearing loss, unspecified ear; Z79.899 Other long term (current) drug therapy
CPT/HCPCS: 36415; 80053; 81001; 85025; 85027; 87086; 93005; 96361; 96374; 99285